=== PATIENT | female | born 1970 | race Caucasian/White ===

== ENCOUNTER 2020-04-15 22:22 | Emergency (ER) | payer MEDICAID ==
[~2020-04-15] VITALS: Ht 144.8 cm; Wt 63.0 kg
[2020-04-16 02:57] LABS: CLARITY URINE CLEAR (CLEAR); COLOR URINE YELLOW (YELLOW); KETONES URINE NEGATIVE (NEGATIVE); LEUKOCYTE ESTERASE URINE TRACE (NEGATIVE); NITRITE URINE NEGATIVE (NEGATIVE); OCCULT BLOOD URINE NEGATIVE (NEGATIVE); PH URINE 6.5 (4.5-8.0); PROTEIN URINE NEGATIVE (NEGATIVE); SPECIFIC GRAVITY URINE 1.008 (1.005-1.030)
[2020-04-16 03:06] LABS: CHLORIDE 110 mEq/L (98-107); EOSINOPHILS % 3.4 % (0.0-5.0); HEMOGLOBIN. 12.8 g/dL (12.0-16.0); LYMPHOCYTES % 35.5 % (20.0-50.0); MEAN CORPUSCULAR HEMOGLOBIN 28.8 pg (28.0-32.0); MEAN CORPUSCULAR VOLUME 85.8 fL (81.0-99.0); MEAN PLATELET VOLUME 11.7 fl (7.4-10.4); MONOCYTES % 5.5 % (2.0-8.0); NEUTROPHILS % 54.6 % (40.0-76.0); PLATELET 135 x1000/uL (130-400); RED BLOOD CELL COUNT 4.43 mill/uL (4.2-5.4); RED CELL DISTRIBUTION WIDTH 14.9 % (11.6-14.6)
[2020-04-16] MEDS ORDERED: CEFTRIAXONE 1 G PREMIX 50 ML IV NR (03:45)
[2020-04-16] MEDS ORDERED: IOHEXOL-300 100 ML BOTTLE ONE (06:25)
[2020-04-16 07:09] VITALS: BP 112/70
== END 2020-04-16 07:21 | disposition home or self-care (01) ==
LOC: ER 22:22
DX: N39.0 Urinary tract infection, site not specified (principal); R10.11 Right upper quadrant pain
CPT/HCPCS: 36415; 74177; 76700; 80053; 81003; 81025; 83690; 85025; 96365; 99285; J0696; Q9967